=== PATIENT | female | born 1940 | race Caucasian/White ===

== ENCOUNTER 2018-08-21 14:45 | Outpatient (CLI) | payer MEDICARE, OTHER ==
[2018-08-21 15:22] LABS: CHOL/HDL RATIO 2.9; LDL/HDL RATIO 1.7 (0.5-3.0)
== END 2018-08-21 23:59 | disposition home or self-care (01) ==
LOC: LAB 14:45
PROVIDERS: ATTEND Internal Medicine Cardiovascular Disease
DX: I10 Essential (primary) hypertension (principal); Z79.899 Other long term (current) drug therapy
CPT/HCPCS: 36415; 80061

== ENCOUNTER → 2018-08-21 | Outpatient (CLI) | payer MEDICARE, OTHER ==
[~2018-08-21] MED LIST: ACET-1600 PO; APIX5TAB PO; CHOL200052 PO; COLE1TAB2 PO; CYAN100072 PO; DICL100G25 TP; DILT240C80 PO; FLEC50TA25 PO; FURO-92 PO; GABA600T7 PO; GLIP10TA13 PO; INSU100I18 SC; INSU100V35 SC; LOPE1TAB4 PO; LOSA100T14 PO; METH750T2 PO; METO-93 PO; OMEP20TA62 PO; POTA20TA89 PO; ROPI4TAB8 PO; TRAM50TA2 PO; tums PO
[2018-08-21 15:08] LABS: BASOPHILS # (AUTO) 0.06 x10^3/uL (0-0.1); BASOPHILS % (AUTO) 1 % (0-1); EOSINOPHILS # (AUTO) 0.12 x10^3/uL (0-0.4); EOSINOPHILS % (AUTO) 1 % (1-7); LYMPHOCYTES # (AUTO) 1.75 x10^3/uL (1-3.4); LYMPHOCYTES % (AUTO) 18 % (22-44); MD NO; MEAN CORPUSCULAR HEMOGLOBIN 28.5 pg (27.0-34.8); MEAN CORPUSCULAR HGB CONC 31.7 g/dL (32.4-35.8); MEAN CORPUSCULAR VOLUME 90.1 fL (80-100); MEAN PLATELET VOLUME 7.3 fL (7.4-10.4); MONOCYTES # (AUTO) 0.46 x10^3/uL (0.2-0.8); MONOCYTES % (AUTO) 5 % (2-9); NEUTROPHILS # (AUTO) 7.16 x10^3/uL (1.8-6.8); NEUTROPHILS % (AUTO) 75 % (42-75); PLATELET COUNT 430 x10^3/uL (130-400); RED BLOOD COUNT 5.21 x10^6/uL (3.82-5.3); RED CELL DISTRIBUTION WIDTH 15.8 % (9.6-15.2)
[2018-08-21 15:18] LABS: ALANINE AMINOTRANSFERASE 17 U/L (12-78); ALBUMIN 3.9 g/dL (3.4-5.0); ANION GAP 7 mmol/L (5-15); CALCIUM 9.1 mg/dL (8.5-10.1); CHLORIDE 104 mmol/L (98-107); CREATININE 0.95 mg/dL (0.55-1.02)
[2018-08-21 15:20] LABS: ALKALINE PHOSPHATASE 105 U/L (45-117); BILIRUBIN,TOTAL 0.4 mg/dL (0.2-1.0); TOTAL PROTEIN 7.9 g/dL (6.4-8.2)
== END | disposition home or self-care (01) ==
LOC: STAR 13:20
PROVIDERS: ATTEND Internal Medicine Gastroenterology
DX: Z01.818 Encounter for other preprocedural examination (principal); K63.5 Polyp of colon; I44.0 Atrioventricular block, first degree
CPT/HCPCS: 36415; 80053; 85025; 93005

== ENCOUNTER 2019-11-23 03:33 | Emergency (ER) | payer MEDICARE, OTHER ==
[~2019-11-23] VITALS: Ht 160 cm; Wt 93.3 kg
[2019-11-23] MEDS ORDERED: PROPOFOL 10 MG/ML, 20ML ONE (03:50)
[2019-11-23 04:00] LABS: BASOPHILS # (AUTO) 0.03 x10^3/uL (0-0.1); BASOPHILS % (AUTO) 0 % (0-1); EOSINOPHILS # (AUTO) 0.19 x10^3/uL (0-0.4); EOSINOPHILS % (AUTO) 3 % (1-7); LYMPHOCYTES # (AUTO) 1.79 x10^3/uL (1-3.4); LYMPHOCYTES % (AUTO) 24 % (22-44); MD NO; MEAN CORPUSCULAR HGB CONC 32.3 g/dL (32.4-35.8); MEAN CORPUSCULAR VOLUME 89.8 fL (80-100); MEAN PLATELET VOLUME 7.4 fL (7.4-10.4); MONOCYTES % (AUTO) 7 % (2-9); NEUTROPHILS # (AUTO) 4.93 x10^3/uL (1.8-6.8); NEUTROPHILS % (AUTO) 66 % (42-75); PLATELET COUNT 376 x10^3/uL (130-400); RED BLOOD COUNT 4.92 x10^6/uL (3.82-5.3)
[2019-11-23] MEDS ORDERED: PROPOFOL 10 MG/ML, 20ML IVPush ONE (04:00)
[2019-11-23 04:12] LABS: ALBUMIN 3.6 g/dL (3.4-5.0); ANION GAP 6 mmol/L (5-15); CHLORIDE 106 mmol/L (98-107); CREATININE 0.78 mg/dL (0.55-1.02)
[2019-11-23 04:16] LABS: TROPONIN I < 0.015 ng/mL (0.000-0.045)
--- NOTE | 2019-11-23 04:30 | NUR ---
Procedural sedation and cardioversion performed with no incidents.
--- NOTE | 2019-11-23 04:42 | NUR ---
Patient BIB [facility] c/o palpitations and CP. Patient has a hx of afib which she takes meds for. Per EMS, patient currently in afib with RVR at a rate of 130s-160s. Patient states she has been cardioverted twice in the past to be converted to NSR. Last time was approx 1 yr ago. Patient is in NAD. Respirations even and unlabored.
--- NOTE | 2019-11-23 04:52 | NUR ---
Report given to ANITHA Green. Patient care transferred.
[2019-11-23 05:08] VITALS: BP 123/68
== END 2019-11-23 05:30 | disposition home or self-care (01) ==
LOC: ED 04:45
DX: I48.0 Paroxysmal atrial fibrillation (principal); R00.0 Tachycardia, unspecified; I10 Essential (primary) hypertension; Z87.891 Personal history of nicotine dependence
CPT/HCPCS: 36415; 71045; 80048; 82040; 83880; 84484; 85025; 92960; 93005; 99291

== ENCOUNTER 2020-05-26 23:48 | Emergency (ER) | payer MEDICARE ==
[~2020-05-26] VITALS: Ht 162.6 cm; Wt 92.0 kg
[~2020-05-26 23:48] MED LIST changes: +METH-640 PO; -METH750T2 PO
[2020-05-27] MEDS ORDERED: GLIP10TA24 PO (00:15)
[2020-05-27] MEDS ORDERED: PANT20TA4 PO (00:15)
--- NOTE | 2020-05-27 00:15 | NUR ---
PT BIB [facility] FOR PALPITATIONS THAT STARTED AT 2030 AND LASTED APPROX 1 1/2 HRS. PT NOW SR. PT GIVEN 4 MG ZOFRAN BY [facility]. PT SAYS PAIN HAS RESOLVED BUT WANTED TO BE SEEN TO MAKE SURE SHE WAS OK. PT WAS CARDIOVERTED FOR THE SAME PREVIOUSLY. VSS. CALL LIGHT IN REACH. XRAY AT BEDSIDE
[2020-05-27 00:19] LABS: BASOPHILS % (AUTO) 1 % (0-1); EOSINOPHILS % (AUTO) 2 % (1-7); LYMPHOCYTES % (AUTO) 16 % (22-44); MD NO; MEAN CORPUSCULAR HEMOGLOBIN 29.5 pg (27.0-34.8); MEAN CORPUSCULAR HGB CONC 33.2 g/dL (32.4-35.8); MEAN PLATELET VOLUME 7.2 fL (7.4-10.4); MONOCYTES % (AUTO) 6 % (2-9); NEUTROPHILS % (AUTO) 76 % (42-75); PLATELET COUNT 337 x10^3/uL (130-400); RED BLOOD COUNT 4.73 x10^6/uL (3.82-5.3); RED CELL DISTRIBUTION WIDTH 14.6 % (9.6-15.2)
[2020-05-27 00:29] LABS: ALBUMIN 3.6 g/dL (3.4-5.0); ANION GAP 6 mmol/L (5-15); CALCIUM 8.7 mg/dL (8.5-10.1); CHLORIDE 109 mmol/L (98-107); CREATININE 0.86 mg/dL (0.55-1.02)
[2020-05-27 00:39] LABS: TROPONIN I < 0.015 ng/mL (0.000-0.045)
--- NOTE | 2020-05-27 00:43 | NUR ---
WILLY RN: PT RESTING IN ROOM. VS STABLE. NO ACUTE DISTRESS NOTED. SMOKED MEAT PREPARER ON. CALL LIGHT IN PLACE. WILL CONTINUE TO MONITOR.
[2020-05-27 00:53] VITALS: BP 121/51
--- NOTE | 2020-05-27 01:14 | NUR ---
REPORT GIVEN TO ANITHA SCHULER
--- NOTE | 2020-05-27 01:15 | NUR ---
PT CALLING FRIEND FOR [facility].
--- NOTE | 2020-05-27 02:03 | NUR ---
PT REACHED FRIEND. [facility] WILL BE HERE IN APPROX 30 MIN. VSS. CALL LIGHT IN REACH
--- NOTE | 2020-05-27 02:31 | NUR ---
Patient given discharge instructions and they have confirmed that they understand the instructions. Patient ambulatory with steady gait.
== END 2020-05-27 02:33 | disposition home or self-care (01) ==
LOC: ED 05-27 00:18
DX: I48.91 Unspecified atrial fibrillation (principal); R06.02 Shortness of breath; R07.89 Other chest pain; R00.2 Palpitations; I10 Essential (primary) hypertension; E11.9 Type 2 diabetes mellitus without complications; I44.0 Atrioventricular block, first degree; Z87.891 Personal history of nicotine dependence
CPT/HCPCS: 36415; 71045; 80048; 82040; 83735; 84443; 84484; 85025; 99284